=== PATIENT | male | born 1970 | race Caucasian/White ===

== ENCOUNTER 2016-10-20 14:05 | Emergency (ER) | payer BC ==
[2016-10-20 14:50] VITALS: RESP 20; TEMP 99.4
[2016-10-20] MEDS ORDERED: AMLODIPINE 5 MG TAB PO SCH (15:00)
[2016-10-20] MEDS ORDERED: CLONIDINE 0.1 MG TAB PO ONE (15:03)
[2016-10-20] MEDS ORDERED: CLONIDINE 0.1 MG TAB ONE (15:05)
[2016-10-20] MEDS ORDERED: AMLODIPINE 5 MG TAB ONE (15:06)
[2016-10-20 16:14] VITALS: BP 129/77; PULSE 75; O2SAT 97
== END 2016-10-20 16:04 | disposition home or self-care (01) ==
LOC: ED 14:05
DX: I10 Essential (primary) hypertension (principal); R51 Headache
CPT/HCPCS: 99283